=== PATIENT | female | born 1985 | race American Indian/Alaskan Native ===

== ENCOUNTER 2018-05-28 09:15 | Emergency (ER) | payer SELFPAY ==
--- NOTE | 2018-05-28 09:46 | Emergency Department Report ---
Blank Doc - Documentation Documentation: Patient is a 32-year-old female who is complaining of some bilateral lower abdominal crampiness. Patient states there is no dysuria or abnormal bleeding but she does have a white thick vaginal discharge present. Patient denies any fevers nausea vomiting at this time. Patient will have a urinalysis and test performed as well as a pelvic exam.
--- NOTE | 2018-05-28 10:16 | Emergency Department Report ---
ED Female HPI - General Chief complaint: Urogenital-Female Stated complaint: PAIN Time Seen by Provider: 05/28/18 09:42 Source: patient Mode of arrival: Ambulatory Limitations: No Limitations - History of Present Illness Initial comments: This is a 32-year-old -[place] female who presents with lower abdominal cramping and vaginal discharge for 2 weeks. Patient states she made an appointment with a [facility] here since she recently moved here but once she started have an abdominal cramp and she decided to come into the emergency room for further evaluation. Patient states abdominal cramping solely or abdomen on the right side started 2 weeks ago and vaginal discharge for one week. Patient states abdominal cramping is intermittent and 3 out of 10 on pain scale. Patient denies frequency, urgency, dysuria, low back pain, fever, nausea or vomiting. MD Complaint: vaginal discharge, pelvic pain, possible STD Onset/Timin -: week(s) Location: suprapubic Radiation: non-radiating Severity: mild Severity scale (0 -10): 3 Quality: cramping Consistency: intermittent Improves with: none Worsens with: none Are you Now?: No Last Menstrual Period: 05/01/18 EDC: 02/05/19 Associated Symptoms: vaginal discharge, abdominal pain. denies: vaginal bleeding, nausea/vomiting, fever/chills, headaches, loss of appetite, dysuria, hematuria, rash, seizure, shortness of breath, syncope, weakness - Related Data Sexually active: Yes : 7 Para: 5 A: 1 Home Medications Medication Instructions Recorded Confirmed Last Taken Vits96/Iron Fum/Folic 1 tab PO DAILY 07/07/14 07/07/14 07/05/14 21:00 [ Tablet] Previous Rx's Medication Instructions Recorded Last Taken Type metroNIDAZOLE [Metronidazole] 500 mg PO BID #14 tablet 05/28/18 Unknown Rx Allergies Allergy/AdvReac Type Severity Reaction Status Date / Time No Known Allergies Allergy Verified 05/28/18 09:20 ED Review of Systems ROS: Stated complaint: PAIN Other details as noted in HPI Constitutional: denies: chills, fever Respiratory: denies: cough, shortness of breath, wheezing Cardiovascular: denies: chest pain, palpitations Gastrointestinal: abdominal pain (lower abdominal cramping). denies: nausea, vomiting, diarrhea, constipation, hematemesis, melena, hematochezia Genitourinary: discharge (white vaginal discharge). denies: urgency, dysuria Neurological: denies: headache, weakness, paresthesias Psychiatric: denies: anxiety, depression ED Past Medical Hx - Past Medical History Previous Medical History?: No Hx Hypertension: No Hx Congestive Heart Failure: No Hx Diabetes: No Hx Deep Vein Thrombosis: No Hx Renal Disease: No Hx Sickle Cell Disease: No Hx Seizures: No Hx Asthma: No Hx COPD: No Hx HIV: No - Surgical History Past Surgical History?: No - Social History Smoking Status: Never Smoker Substance Use Type: None - Medications Home Medications: Home Medications Medication Instructions Recorded Confirmed Last Taken Type Vits96/Iron Fum/Folic 1 tab PO DAILY 07/07/14 07/07/14 07/05/14 21:00 History [ Tablet] metroNIDAZOLE [Metronidazole] 500 mg PO BID #14 tablet 05/28/18 Unknown Rx ED Physical Exam - General Limitations: No Limitations General appearance: alert, in no apparent distress - Respiratory Respiratory exam: Present: normal lung sounds bilaterally. Absent: respiratory distress - Cardiovascular Cardiovascular Exam: Present: regular rate, normal rhythm. Absent: systolic murmur, diastolic murmur, rubs, gallop - GI/Abdominal GI/Abdominal exam: Present: soft, normal bowel sounds. Absent: organomegaly, mass - External exam: Present: normal external exam Speculum exam: Present: vaginal discharge (malodorous white discharge). Absent : erythema, cervical discharge, vaginal bleeding, foreign body, tissue, laceration Bi-manual exam: Present: normal bi-manual exam - Back Exam Back exam: Present: normal inspection. Absent: CVA tenderness (R), CVA tenderness (L) - Neurological Exam Neurological exam: Present: alert, oriented X3 - Psychiatric Psychiatric exam: Present: normal affect, normal mood - Skin Skin exam: Present: warm, dry, intact, normal color. Absent: rash ED Course Vital Signs 05/28/18 05/28/18 09:20 14:11 Temperature 99.1 F 98.1 F Pulse Rate 95 H 86 Respiratory 16 16 Rate Blood Pressure 109/73 Blood Pressure 110/76 [Left] O2 Sat by Pulse 100 100 Oximetry ED Medical Decision Making - Radiology Data Radiology results: report reviewed ULTRASOUND OB LESS THAN 14 WEEKS FETUS ULTRASOUND OB TRANSVAGINAL HISTORY: Abdominal cramping during . COMPARISON: None. TECHNIQUE: Transabdominal and transvaginal ultrasound with color doppler interrogation. FINDINGS: Uterus: 8.7 x 5.8 x 5.8 cm. No uterine mass is identified. The cervix is unremarkable. Endometrium: A small tear shaped cystic area is identified within the endometrial canal which presumably represents an early gestational sac. No pole, yolk sac or heart tones could be identified at this time. Average diameter correlates with a 5 week, 6 day . This could also represent fluid in the endometrial canal. Right ovary: 1.9 x 1.2 x 1.4 cm. No focal abnormality. Left ovary: 3.4 x 2.4 x 3.0 cm. A 2.2 cm complex cyst is noted in the right adnexal region. No pelvic fluid or mass is identified. Normal color doppler interrogation. IMPRESSION: An empty gestational sac is identified in the endometrial canal. This may represent a very early intrauterine . Blighted ovum or ectopic are not entirely excluded. Followup is recommended. - Medical Decision Making This is a 32-year-old -[place] female who presents with vaginal discharge and suprapubic pain for 2 weeks. Patient was examined by me. Vitals are stable and in no acute distress. Obtained wet prep and GC via pelvic exam, urinalysis ordered and pending. GC pending, patient instructed to f/u in 2-5 days for results. Wet prep positive for clue cells, negative trichomoniasis and yeast. Start metronidazole 500 mg po bid x 7 days for bacterial vaginitis. Positive urine hcg, obtained OB US ans hcg quantitative, 131.7. An empty gestational sac is identified in the endometrial canal. This may represent a very early intrauterine . Blighted ovum or ectopic are not entirely excluded. Followup is recommended. Patient instructed to f/u in 24-48 hours for repeat hcg and/or US to r/o threatened miscarriage. Discharged home in stable condition. Referrals to [facility] for follow-up. Critical care attestation.: If time is entered above; I have spent that time in minutes in the direct care of this critically ill patient, excluding procedure time. ED Disposition Clinical Impression: Vaginal discharge, Bacterial vaginitis, confirmed by positive urine test, Threatened in early Disposition: - TO HOME OR SELFCARE Is pt being admited?: No Does the pt Need Aspirin: No Condition: Stable Instructions: (ED), Bacterial Vaginosis (ED) Additional Instructions: Avoid drinking alcohol while taking antibiotics and for 24 hours after completion. Continue safe sexual intercourse. Return to ER or f/u with [facility] for repeat hcg qualitative serum. Follow up with Primary Care Provider or health department. Prescriptions: metroNIDAZOLE [Metronidazole] 500 mg PO BID #14 tablet Referrals: [facility] [Outside] - 3-5 Days [facility] [Provider Group] - 3-5 Days [facility] [Provider Group] - 3-5 Days Forms: STI Treatment and Prevention Time of Disposition: 12:02 Print Language: [place]
[2018-05-28 12:08] LABS: Bilirubin,Urine NEG (Negative); Blood,Urine MOD (Negative); Color,Urine Yellow (Yellow); Hyaline Casts,Urine 1 /LPF; Mucus,Urine 3+ /HPF; Protein,Urine <15 mg/dL mg/dL (Negative)
[2018-05-28 12:10] LABS: HCG Qualitative,Urine Positive (Negative)
--- NOTE | 2018-05-28 13:34 | Ultrasound Report ---
ULTRASOUND OB LESS THAN 14 WEEKS FETUS ULTRASOUND OB TRANSVAGINAL HISTORY: Abdominal cramping during . COMPARISON: None. TECHNIQUE: Transabdominal and transvaginal ultrasound with color doppler interrogation. FINDINGS: Uterus: 8.7 x 5.8 x 5.8 cm. No uterine mass is identified. The cervix is unremarkable. Endometrium: A small tear shaped cystic area is identified within the endometrial canal which presumably represents an early gestational sac. No pole, yolk sac or heart tones could be identified at this time. Average diameter correlates with a 5 week, 6 day . This could also represent fluid in the endometrial canal. Right ovary: 1.9 x 1.2 x 1.4 cm. No focal abnormality. Left ovary: 3.4 x 2.4 x 3.0 cm. A 2.2 cm complex cyst is noted in the right adnexal region. No pelvic fluid or mass is identified. Normal color doppler interrogation. IMPRESSION: An empty gestational sac is identified in the endometrial canal. This may represent a very early intrauterine . Blighted ovum or ectopic are not entirely excluded. Followup is recommended.
[2018-05-28 14:12] VITALS: BP 110/76
== END 2018-05-28 14:15 | disposition home or self-care (01) ==
LOC: ED 09:15
DX: O23.591 Infection of other part of genital tract in pregnancy, first trimester (principal); Z3A.01 Less than 8 weeks gestation of pregnancy; O20.0 Threatened abortion
CPT/HCPCS: 36415; 76801; 76817; 81001; 81025; 84702; 87210; 87591

== ENCOUNTER 2018-05-30 11:27 | Emergency (ER) | payer SELFPAY ==
--- NOTE | 2018-05-30 11:54 | Emergency Department Report ---
Blank Doc - Documentation Documentation: Patient is 32-year-old female who is presenting for repeat beta Quant to see if her levels have dropped further. Patient suspected demise. Gestational sac was seen on her last visit however there was no pole or Quant was 131. Patient will have a repeat Quant will be reassessed.
--- NOTE | 2018-05-30 12:10 | Emergency Department Report ---
ED HPI - General Chief complaint: Medical Clearance Stated complaint: BLOOD WORK Time Seen by Provider: 05/30/18 11:53 Source: patient Mode of arrival: Ambulatory Limitations: No Limitations - History of Present Illness Initial comments: This is a 32-year-old -[place] female who presents for repeat qualitative hCG labs to rule out the written miscarriage. Patient was seen here 2 days ago with a confirmed , hCG qualitative was low and instructed to follow-up in 48 hours for repeat labs. Patient call [facility] office schedule appointment for tomorrow but waking on Medicaid confirmation so she decided to come in for follow-up. Patient denies having vaginal bleeding or discharge, fever, pelvic pain or low back pain. Onset/Timin -: days(s) Radiation: none Severity: mild Severity scale (0 -10): 0 Associated symptoms: denies other symptoms Vaginal bleeding: none :: Yes Number of weeks : 5 OB History - Current : no complications OB History - Previous Pregnancies: no complications Last menstrual period: 05/01/18 Pre-ivan care: none - Related Data : 7 Para: 5 Ab: 1 Home Medications Medication Instructions Recorded Confirmed Last Taken Vits96/Iron Fum/Folic 1 tab PO DAILY 07/07/14 07/07/14 07/05/14 21:00 [ Tablet] Previous Rx's Medication Instructions Recorded Last Taken Type metroNIDAZOLE [Metronidazole] 500 mg PO BID #14 tablet 05/28/18 Unknown Rx 21/Iron Fu/Folic Acid 1 each PO DAILY #30 tablet 05/30/18 Unknown Rx [ Complete Caplet] Allergies Allergy/AdvReac Type Severity Reaction Status Date / Time No Known Allergies Allergy Verified 05/28/18 09:20 ED Review of Systems ROS: Stated complaint: BLOOD WORK Other details as noted in HPI Constitutional: denies: chills, fever Respiratory: denies: cough, shortness of breath, wheezing Cardiovascular: denies: chest pain, palpitations Gastrointestinal: denies: abdominal pain, nausea, diarrhea Genitourinary: denies: urgency, dysuria, discharge Musculoskeletal: denies: back pain, joint swelling, arthralgia Neurological: denies: headache, weakness, numbness, paresthesias Psychiatric: denies: anxiety, depression ED Past Medical Hx - Past Medical History Hx Hypertension: No Hx Congestive Heart Failure: No Hx Diabetes: No Hx Deep Vein Thrombosis: No Hx Renal Disease: No Hx Sickle Cell Disease: No Hx Seizures: No Hx Asthma: No Hx COPD: No Hx HIV: No - Social History Smoking Status: Never Smoker Substance Use Type: Alcohol - Medications Home Medications: Home Medications Medication Instructions Recorded Confirmed Last Taken Type Vits96/Iron Fum/Folic 1 tab PO DAILY 07/07/14 07/07/14 07/05/14 21:00 History [ Tablet] metroNIDAZOLE [Metronidazole] 500 mg PO BID #14 tablet 05/28/18 Unknown Rx 21/Iron Fu/Folic Acid 1 each PO DAILY #30 tablet 05/30/18 Unknown Rx [ Complete Caplet] ED Physical Exam - General Limitations: No Limitations General appearance: alert, in no apparent distress - Respiratory Respiratory exam: Present: normal lung sounds bilaterally. Absent: respiratory distress - Cardiovascular Cardiovascular Exam: Present: regular rate, normal rhythm. Absent: systolic murmur, diastolic murmur, rubs, gallop - GI/Abdominal GI/Abdominal exam: Present: soft, normal bowel sounds - Back Exam Back exam: Present: normal inspection. Absent: CVA tenderness (R), CVA tenderness (L) - Neurological Exam Neurological exam: Present: alert, oriented X3 - Psychiatric Psychiatric exam: Present: normal affect, normal mood ED Course Vital Signs 05/30/18 05/30/18 11:32 15:56 Temperature 99.0 F Pulse Rate 95 H 89 Respiratory 16 16 Rate Blood Pressure 112/60 Blood Pressure 104/67 [Left] O2 Sat by Pulse 99 100 Oximetry ED Medical Decision Making - Radiology Data Radiology results: report reviewed ULTRASOUND OB LESS THAN 14 WEEKS 3 DAYS ULTRASOUND OB TRANSVAGINAL HISTORY: Rule out ectopic , pelvic pain. COMPARISON: 05/28/18. TECHNIQUE: Transabdominal and transvaginal ultrasound with color doppler interrogation. FINDINGS: No significant change is appreciated since the exam 2 days ago. A tear shaped gestational sac or fluid collection is identified within the endometrial canal but no pole, yolk sac or cardiac activity could be demonstrated. Average gestational sac diameter correlates with a 6 week 3 day . The right ovary remains unremarkable measuring 2.8 x 1.4 x 1.5 cm. The left ovary measures 4.3 x 2.6 x 3.6 cm. A 2.9 cm slightly complex cyst is noted in the left ovary. No obvious pole, cardiac activity or ring of fire in this area. Small free fluid has developed in the cul-de-sac. IMPRESSION: No significant change since 05/28/18. Possible empty gestational sac or a very early in the endometrial canal. There is a complex cystic lesion in the left ovary which is grossly unchanged. - Medical Decision Making This is a 32-year-old -[place] female who presents for repeat hcg labs to r/o threatened miscarriage. Patient was examined by me. Vitals are stable and in no acute distress. Obtained hcg quantitative and OB US. HCG is 315.2, which has almost tippled since last visit. No significant change since . Possible empty gestational sac or a very early in the endometrial canal. There is a complex cystic lesion in the left ovary which is grossly unchanged. Start complete vitamins 1 tablet po daily. Patient instructed to f/u [facility]. Discharged home in stable condition. Referrals to [facility] for follow-up. Critical care attestation.: If time is entered above; I have spent that time in minutes in the direct care of this critically ill patient, excluding procedure time. ED Disposition Clinical Impression: Threatened miscarriage in early Disposition: DC-01 TO HOME OR SELFCARE Is pt being admited?: No Does the pt Need Aspirin: No Condition: Stable Instructions: Threatened Miscarriage (ED), (ED) Additional Instructions: Start taking vitamins daily as prescribed. Follow up with [facility] in 2-5 days. Return to ER if sharp abdominal pain, low back pain, and vaginal bleeding. Prescriptions: 21/Iron Fu/Folic Acid [ Complete Caplet] 1 each PO DAILY #30 tablet Referrals: [facility] [Provider Group] - 3-5 Days [facility] [Provider Group] - 3-5 Days [facility] [Outside] - 3-5 Days Forms: Work/School Release Form(ED) Time of Disposition: 15:29 Print Language: CITIZEN OF [place]
--- NOTE | 2018-05-30 14:36 | Ultrasound Report ---
ULTRASOUND OB LESS THAN 14 WEEKS 3 DAYS ULTRASOUND OB TRANSVAGINAL HISTORY: Rule out ectopic , pelvic pain. COMPARISON: 05/28/18. TECHNIQUE: Transabdominal and transvaginal ultrasound with color doppler interrogation. FINDINGS: No significant change is appreciated since the exam 2 days ago. A tear shaped gestational sac or fluid collection is identified within the endometrial canal but no pole, yolk sac or cardiac activity could be demonstrated. Average gestational sac diameter correlates with a 6 week 3 day . The right ovary remains unremarkable measuring 2.8 x 1.4 x 1.5 cm. The left ovary measures 4.3 x 2.6 x 3.6 cm. A 2.9 cm slightly complex cyst is noted in the left ovary. No obvious pole, cardiac activity or ring of fire in this area. Small free fluid has developed in the cul-de-sac. IMPRESSION: No significant change since 05/28/18. Possible empty gestational sac or a very early in the endometrial canal. There is a complex cystic lesion in the left ovary which is grossly unchanged.
[2018-05-30 15:57] VITALS: BP 104/67
== END 2018-05-30 15:57 | disposition home or self-care (01) ==
LOC: ED 11:27
DX: O20.0 Threatened abortion (principal); Z3A.08 8 weeks gestation of pregnancy
CPT/HCPCS: 36415; 76801; 76817; 84702; 84703

== ENCOUNTER 2018-07-10 09:33 | Emergency (ER) | payer OTHER, MEDICAID ==
[2018-07-10 09:46] VITALS: BP 118/63
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
[2018-07-10] MEDS ORDERED: TYLENOL PO ONE (11:57)
[2018-07-10] MEDS ORDERED: TYLENOL ONE (12:01)
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
== END 2018-07-10 16:51 | disposition home or self-care (01) ==
LOC: ED 09:33
DX: O9A.211 Injury, poisoning and certain other consequences of external causes complicating pregnancy, first trimester (principal); O34.81 Maternal care for other abnormalities of pelvic organs, first trimester; Z3A.09 9 weeks gestation of pregnancy; S39.012A Strain of muscle, fascia and tendon of lower back, initial encounter; S29.011A Strain of muscle and tendon of front wall of thorax, initial encounter; N83.202 Unspecified ovarian cyst, left side; S09.90XA Unspecified injury of head, initial encounter; X58.XXXA Exposure to other specified factors, initial encounter; Y93.89 Activity, other specified; Y92.89 Other specified places as the place of occurrence of the external cause; Y99.8 Other external cause status
CPT/HCPCS: 36415; 76801; 84702; 93005; 93010

== ENCOUNTER 2018-08-04 01:19 | Emergency (ER) | payer MEDICAID, OTHER ==
[2018-08-04 02:34] VITALS: BP 126/58
[2018-08-04 03:05] LABS: Basophils % (Auto) 0.4 % (0.0-1.8); Eosinophils % (Auto) 0.3 % (0.0-4.3); Hematocrit 36.2 % (30.3-42.9); Hemoglobin 12.8 gm/dl (10.1-14.3); Lymphocytes # (Auto) 0.9 K/mm3 (1.2-5.4); Mean Corpuscular HGB Conc 35 % (30-34); Mean Corpuscular Hemoglobin 32 pg (28-32); Mean Corpuscular Volume 91 fl (79-97); Monocytes # (Auto) 0.5 K/mm3 (0.0-0.8); Monocytes % (Auto) 5.7 % (0.0-7.3); Platelet Count 217 K/mm3 (140-440); Red Blood Count 3.99 M/mm3 (3.65-5.03); Red Cell Distribution Width 13.6 % (13.2-15.2)
[2018-08-04 03:52] LABS: Bilirubin,Urine NEG (Negative); Blood,Urine LG (Negative); Color,Urine Straw (Yellow); Protein,Urine <15 mg/dL mg/dL (Negative); Urobilinogen,Urine < 2.0 mg/dL (<2.0)
--- NOTE | 2018-08-04 03:59 | Ultrasound Report ---
FINAL REPORT PROCEDURE: US OB < = 14 WEEKS FETUS TECHNIQUE: Real-time transabdominal sonography of the uterus, placenta, amniotic fluid, adnexa, and fetus was performed with image documentation. Measurements were obtained to determine age/size. M-mode Doppler was used to document heartbeat. CPT 62743 HISTORY: 13 weeks vaginal bleeding COMPARISON: No prior studies are available for comparison. FINDINGS: CRL: 78 mm, which corresponds to a gestational age of: 13 weeks, 6 days. Yolk Sac: Normal. Embryonic Cardiac Activity: 170 beats per minute Gestational Sac: Normal. Amniotic fluid: Normal. Cervix: Normal. Right Ovary: Normal. Left Ovary: Not identified Estimated delivery date: 02/03/2019 Uterus and adnexa: Normal. IMPRESSION: Single live intrauterine gestation at approximately 13 weeks and 6 days. EDC by US 02/03/2019
[2018-08-04] MEDS ORDERED: ROCEPHIN IM ONE (05:30)
[2018-08-04] MEDS ORDERED: XYLOCAINE 1% MPF 5 mL INFILTRATI ONE (05:30)
--- NOTE | 2018-08-04 05:36 | Emergency Department Report ---
ED Female HPI - General Chief complaint: Vaginal Bleeding Stated complaint: POSS MISSCARRAGE Source: patient Mode of arrival: Ambulatory Limitations: No Limitations - History of Present Illness Initial comments: Patient 32-year-old -Citizen Of [place] female who is A1 who presents for vaginal spotting since this morning patient denies abdominal pain no back pain no nausea vomiting patient does endorse dysuria frequency is no change in vaginal discharge patient states not currently sexually active last contact 4 months ago . No exacerbating or relieving factors blood is light pink noted to tissue after voiding MD Complaint: vaginal bleeding, vaginal discharge Onset/Timin -: days(s) Radiation: non-radiating Severity: mild Severity scale (0 -10): 2 Consistency: intermittent Improves with: none Worsens with: none Are you Now?: Yes Last Menstrual Period: 05/22/18 EDC: 02/26/19 Associated Symptoms: vaginal bleeding, dysuria - Related Data Sexually active: No : 7 Para: 5 A: 1 Home Medications Medication Instructions Recorded Confirmed Last Taken Vits96/Iron Fum/Folic 1 tab PO DAILY 07/07/14 07/07/14 07/05/14 21:00 [ Tablet] Previous Rx's Medication Instructions Recorded Last Taken Type metroNIDAZOLE [Metronidazole] 500 mg PO BID #14 tablet 05/28/18 Unknown Rx 21/Iron Fu/Folic Acid 1 each PO DAILY #30 tablet 05/30/18 Unknown Rx [ Complete Caplet] Acetaminophen 500 mg PO Q8H PRN #12 tablet 07/10/18 Unknown Rx cephALEXin [Keflex] 500 mg PO Q12HR #14 cap 08/04/18 Unknown Rx Allergies Allergy/AdvReac Type Severity Reaction Status Date / Time No Known Allergies Allergy Verified 07/10/18 09:45 ED Review of Systems ROS: Stated complaint: POSS MISSCARRAGE Other details as noted in HPI Constitutional: denies: chills, fever Eyes: denies: eye pain, eye discharge, vision change ENT: denies: ear pain, throat pain Respiratory: denies: cough, shortness of breath, wheezing Cardiovascular: denies: chest pain, palpitations Endocrine: no symptoms reported Gastrointestinal: denies: abdominal pain, nausea, diarrhea Genitourinary: denies: urgency, dysuria, frequency, hematuria, discharge, abnormal menses, dyspareunia Musculoskeletal: denies: back pain, joint swelling, arthralgia Skin: denies: rash, lesions Neurological: denies: headache, weakness, paresthesias Psychiatric: denies: anxiety, depression Hematological/Lymphatic: denies: easy bleeding, easy bruising ED Past Medical Hx - Past Medical History Previous Medical History?: No Hx Hypertension: No Hx Congestive Heart Failure: No Hx Diabetes: No Hx Deep Vein Thrombosis: No Hx Renal Disease: No Hx Sickle Cell Disease: No Hx Seizures: No Hx Asthma: No Hx COPD: No Hx HIV: No - Surgical History Past Surgical History?: No - Social History Smoking Status: Never Smoker Substance Use Type: None - Medications Home Medications: Home Medications Medication Instructions Recorded Confirmed Last Taken Type Vits96/Iron Fum/Folic 1 tab PO DAILY 07/07/14 07/07/14 07/05/14 21:00 History [ Tablet] metroNIDAZOLE [Metronidazole] 500 mg PO BID #14 tablet 05/28/18 Unknown Rx 21/Iron Fu/Folic Acid 1 each PO DAILY #30 tablet 05/30/18 Unknown Rx [ Complete Caplet] Acetaminophen 500 mg PO Q8H PRN #12 tablet 07/10/18 Unknown Rx cephALEXin [Keflex] 500 mg PO Q12HR #14 cap 08/04/18 Unknown Rx ED Physical Exam - General Limitations: No Limitations General appearance: alert, in no apparent distress - Head Head exam: Present: atraumatic, normocephalic - Eye Eye exam: Present: normal appearance - ENT ENT exam: Present: mucous membranes moist - Neck Neck exam: Present: normal inspection - Respiratory Respiratory exam: Present: normal lung sounds bilaterally. Absent: respiratory distress - Cardiovascular Cardiovascular Exam: Present: regular rate - GI/Abdominal GI/Abdominal exam: Present: soft, normal bowel sounds. Absent: bruit, hernia - Rectal Rectal exam: Present: deferred - External exam: Present: other (exam deferred ) - Extremities Exam Extremities exam: Present: normal inspection - Back Exam Back exam: Present: normal inspection - Neurological Exam Neurological exam: Present: alert, oriented X3 - Psychiatric Psychiatric exam: Present: normal affect, normal mood - Skin Skin exam: Present: warm, dry, intact, normal color. Absent: rash ED Course Vital Signs 08/04/18 08/04/18 01:49 01:50 Temperature 98.2 F Pulse Rate 115 H 116 H Respiratory 18 Rate Blood Pressure 126/58 O2 Sat by Pulse 100 100 Oximetry ED Medical Decision Making - Lab Data Result diagrams: 08/04/18 02:50 Laboratory Tests 08/04/18 08/04/18 08/04/18 00:00 02:50 02:50 WBC 9.0 RBC 3.99 Hgb 12.8 Hct 36.2 MCV 91 MCH 32 MCHC 35 H RDW 13.6 Plt Count 217 Lymph % (Auto) 10.0 L [place] % (Auto) 5.7 Eos % (Auto) 0.3 Baso % (Auto) 0.4 Lymph # 0.9 L [place] # 0.5 Eos # 0.0 Baso # 0.0 Seg Neutrophils % 83.6 H Seg Neutrophils # 7.6 HCG, Quant 24717 H Urine Color Straw Urine Turbidity Hazy Urine pH 6.0 Ur Specific [place] 1.003 Urine Protein <15 mg/dl Urine Glucose (UA) Neg Urine Ketones Neg Urine Blood Lg Urine Nitrite Neg Urine Bilirubin Neg Urine Urobilinogen < 2.0 Ur Leukocyte Esterase Mod Urine WBC (Auto) 4.0 Urine RBC (Auto) 2.0 U Epithel Cells (Auto) 3.0 Blood Type Antibody Screen 08/04/18 02:50 WBC RBC Hgb Hct MCV MCH MCHC RDW Plt Count Lymph % (Auto) [place] % (Auto) Eos % (Auto) Baso % (Auto) Lymph # [place] # Eos # Baso # Seg Neutrophils % Seg Neutrophils # HCG, Quant Urine Color Urine Turbidity Urine pH Ur Specific [place] Urine Protein Urine Glucose (UA) Urine Ketones Urine Blood Urine Nitrite Urine Bilirubin Urine Urobilinogen Ur Leukocyte Esterase Urine WBC (Auto) Urine RBC (Auto) U Epithel Cells (Auto) Blood Type A NEGATIVE Antibody Screen Negative - Medical Decision Making ua pos for luek, wbc, pt denies pos of sti, plan: stephen mock with keflex follow up with Dr. Goddard at [facility] in 2 days pt verbalized agreement and understanding of same. Critical care attestation.: If time is entered above; I have spent that time in minutes in the direct care of this critically ill patient, excluding procedure time. ED Disposition Clinical Impression: UTI (urinary tract infection) during Qualifiers: Trimester: first trimester Qualified Code(s): O23.41 - Unspecified infection of urinary tract in , first trimester Disposition: DC- TO HOME OR SELFCARE Is pt being admited?: No Does the pt Need Aspirin: No Condition: Stable Instructions: Urinary Tract Infection in Women (ED) Prescriptions: cephALEXin [Keflex] 500 mg PO Q12HR #14 cap Referrals: JOHN GODDARD MD [Staff Physician] - 3-5 Days Forms: Work/School Release Form(ED) Time of Disposition: 05:40
== END 2018-08-04 05:52 | disposition home or self-care (01) ==
LOC: ED 01:19
DX: O23.41 Unspecified infection of urinary tract in pregnancy, first trimester (principal); O26.891 Other specified pregnancy related conditions, first trimester; Z3A.13 13 weeks gestation of pregnancy
CPT/HCPCS: 36415; 76801; 81001; 84702; 85025; 86850; 86900; 86901; 96372; 99284; J0696

== ENCOUNTER 2021-06-22 11:15 | Emergency (ER) | payer SELFPAY | END 2021-06-22 13:03 | disposition left against medical advice (07) | LOC: ED 11:15 | DX: Z00.00 Encounter for general adult medical examination without abnormal findings (principal); Z53.21 Procedure and treatment not carried out due to patient leaving prior to being seen by health care provider ==

== ENCOUNTER 2022-05-11 14:17 | Emergency (ER) | payer OTHER ==
[2022-05-11 16:01] VITALS: BP 117/70
[2022-05-11 18:03] LABS: Alanine Aminotransferase 21 units/L (7-56); Albumin 4.6 g/dL (3.9-5); Blood Urea Nitrogen 6 mg/dL (7-17); Calcium 9.8 mg/dL (8.4-10.2); Hemolysis Index 88
[2022-05-11 18:18] LABS: BUN/Creatinine Ratio 9
== END 2022-05-12 01:24 | disposition left against medical advice (07) ==
LOC: ED 14:17
DX: O26.891 Other specified pregnancy related conditions, first trimester (principal); R10.9 Unspecified abdominal pain; Z53.21 Procedure and treatment not carried out due to patient leaving prior to being seen by health care provider
CPT/HCPCS: 80053

== ENCOUNTER 2022-07-24 12:06 | Outpatient (CLI) | payer OTHER ==
--- NOTE | 2022-07-24 16:18 | Ultrasound Report ---
OBSTETRIC ULTRASOUND INDICATION: Placental location, R/O abruption, well bein COMPARISON: No prior relevant imaging studies are available for comparison. TECHNIQUE: Transabdominal imaging was performed. FINDINGS: Single viable intrauterine is identified. lie: Currently cephalic.. Heart rate: 141 bpm. measurements are as follows: Biparietal diameter 23 weeks 5 days Head circumference 23 weeks 5 days Abdominal circumference 23 weeks 3 days Femur length 23 weeks 5 days Estimated weight is 606 g. EDC by ultrasound 11-15-22 Posterior/fundal placenta. No specific features of abruption or demonstrated on the provided images. CONCLUSION: Single viable second trimester intrauterine gestation, additional quantitative/quantitative data prov ided above. Continued obstetric/sonographic follow-up recommended. Signer Name: Wayne Mata MD Signed: 07/24/2022 4:14 PM Workstation Name: [id number]
== END 2022-07-24 16:02 | disposition home or self-care (01) ==
LOC: TRG 12:06 → APU 12:09 → TRG 16:02
PROVIDERS: ATTEND Obstetrics & Gynecology Gynecology
DX: O46.92 Antepartum hemorrhage, unspecified, second trimester (principal); Z3A.21 21 weeks gestation of pregnancy
CPT/HCPCS: 76805; 76816